=== PATIENT | male | born 1955 | race Caucasian/White ===

== ENCOUNTER 2022-05-28 22:27 | Inpatient (IN) ==
[2022-05-28] MEDS ORDERED: DUONEB NEB STA (23:11)
[2022-05-28] MEDS ORDERED: DUONEB NEB ONE (23:13)
[2022-05-28 23:31] LABS: BASOPHILS # (AUTO) 0.1 K/uL (0-0.2); BASOPHILS % (AUTO) 0.7 % (0.0-3.0); EOSINOPHILS # (AUTO) 0.1 K/ul (0.0-0.7); EOSINOPHILS % (AUTO) 0.4 % (0.0-7.0); HEMATOCRIT 39.4 % (42.0-52.0); HEMOGLOBIN 13.3 g/dl (14.0-18.0); IMMATURE GRANULOCYTE # (AUTO) 0.1 (0.0-1.0); IMMATURE GRANULOCYTE % (AUTO) 0.7 % (0.0-5.0); LYMPHOCYTES # (AUTO) 1.6 K/uL (0.60-3.4); LYMPHOCYTES % (AUTO) 12.3 (10.0-50.0); MEAN CORPUSCULAR HEMOGLOBIN 30.6 pg (27.0-31.0); MEAN CORPUSCULAR HGB CONC 33.8 (31.8-35.4); MEAN CORPUSCULAR VOLUME 90.6 fl (80.0-94.0); MONOCYTES # (AUTO) 1.3 K/uL (0.4-2.0); MONOCYTES % (AUTO) 9.9 (0-10); NEUTROPHILS # (AUTO) 10.2 K/ul (2.0-6.9); PLATELET COUNT 256 10^3/uL (140-440); RED BLOOD COUNT 4.35 10^6/ul (4.70-6.10); WHITE BLOOD COUNT 13.38 K/ul (4.2-10.2)
[2022-05-28 23:43] LABS: ALANINE AMINOTRANSFERASE 37.9 U/L (0-50); ALBUMIN 3.79 g/dL (3.5-5.0); ALKALINE PHOSPHATASE 83.6 U/L (56-119); ASPARTATE AMINO TRANSFERASE 37.7 U/L (17-59); BILIRUBIN,TOTAL 0.63 mg/dL (0.2-1.3); BLOOD UREA NITROGEN 7.2 mg/dL (9-20); CARBON DIOXIDE 23.5 mmol/L (22-30.0); CHLORIDE 104.6 mmol/L (98-107); CREATININE 0.97 mg/dL (0.60-1.10); GLUCOSE 140.5 mg/dL (74-106); POTASSIUM 3.45 mmol/L (3.5-5.1); TOTAL PROTEIN 7.14 g/dL (6.3-8.2)
[2022-05-28] MEDS ORDERED: MAXIPIME 2 GM/50 ML D5W 2 GM/50 ML BAG IV ONE (23:49)
[2022-05-28] MEDS ORDERED: VANCOMYCIN 1.5 GRAM/300 ML PREMIX 1.5 GM/300 ML BAG IV ONE (23:54)
[2022-05-28 23:55] LABS: TROPONIN I < 0.012 ng/ml (0.0000-0.120)
[2022-05-29 00:02] LABS: MOLECULAR FLU A NEGATIVE BY NAAT (NEGATIVE); MOLECULAR FLU B NEGATIVE BY NAAT (NEGATIVE)
[2022-05-29 00:05] LABS: SARS COV-2 RNA RAPID NAAT NEGATIVE (NEGATIVE)
[2022-05-29 00:09] LABS: ABG PH 7.46 (7.35-7.45); COHb 2.2 (0.5-1.5); HCO3 22.8 (21-28); MetHb 0.9 (0-1.5); TCO2 23.8 (19-24); sO2 93.3 % (94-98)
--- NOTE | 2022-05-29 00:27 | DI ---
EXAM: PA and lateral chest. HISTORY: Cough. FINDINGS: There is a left-sided MediPort catheter. There are multiple sternotomy wires. The cardiac silhouette is enlarged. The pulmonary vasculature is within normal limits. The costophrenic angles are clear. There are bilateral infiltrates, consistent with pneumonia. Impression: Bilateral pneumonia as described. Cardiomegaly.
[2022-05-29] MEDS ORDERED: TYLENOL PO PRN (00:52)
[2022-05-29] MEDS ORDERED: DEXTROSE 50%-WATER ABBOJECT IVP PRN (00:52)
[2022-05-29] MEDS ORDERED: ALBUTEROL 0.083% NEB NEB PRN ×3 (00:57→01:28)
[2022-05-29] MEDS ORDERED: TESSALON PERLES PO PRN (01:03)
--- NOTE | 2022-05-29 01:27 | ED.PDOC ---
General ED Provider: Dr. ALDAIR PINO Chief Complaint: Respiratory Complaint Stated Complaint: cough since last Mon - seen at yesterday dx CAP Rx augmentin & Zithro.Hx RT non scc receiving chemo May 19 Time Seen by Provider: 05/28/22 23:02 Mode of Arrival: Wheelchair Information Source: Patient and Family Exam Limitations: No limitations Primary Care Provider: CARMEN DANIEL MD Seen Within Last 72 Hours for Same Complaint By: ED Nursing and Triage Documentation Reviewed and Agree: Yes Does patient meet sepsis criteria?: No System Inflammatory Response Syndrome: Not Applicable Sepsis Protocol: For patient's 13 years and over: Temp is 96.8 and below OR 101 and greater Pulse >90 BPM Resp >20/minute Acutely Altered Mental Status Are patient's symptoms suggestive of a new infection, such as: -Pneumonia -Skin, Soft Tissue -Endocarditis -UTI -Bone, Joint Infection -Implantable Device -Acute Abdominal Infection -Wound Infection -Meningitis -Blood Stream Catheter Infection -Unknown Review of Systems Review Of Systems Constitutional: Reports Weakness; Denies Chills, Diaphoresis, Fever or Sweats Eyes: Reports No symptoms Ears, Nose, Mouth, Throat: Reports Nose pain and Other (nasal congestion ) Respiratory: Reports Cough Cardiac: Reports No symptoms GI: Reports No symptoms : Reports No symptoms Musculoskeletal: Reports No symptoms Neurological: Reports No symptoms Endocrine: Reports No symptoms Hematologic/Lymphatic: Reports No symptoms All Other Systems: Reviewed and Negative Physical Exam Physical Exam Appearance: Reports Ill-appearing Ill-appearing: Mild Pain Distress: None Eyes: Reports SAJI, EOMI and Conjunctiva clear ENT: Reports Ears normal, Nose normal and Oropharynx normal Neck: Supple Respiratory: Reports Airway patent, Respirations nonlabored and Rhonchi; Denies Retractions Cardiovascular: Reports RRR, Pulses normal and No murmur GI/: Reports Soft and Nontender Musculoskeletal: Reports Normal strength Skin: Reports Warm and Dry Neurological: Reports Sensation intact, Motor intact, Alert and Oriented Psychiatric: Reports Affect appropriate Interpretation Radiology Interpretation Radiology Interpretation By: Radiologist Radiology Results: Positive Exam Interpreted: CXR Xray Comments: bilat Pne EKG Interpretation Time of EKG #1: 12:19 Rate: Normal Rhythm: Sinus Ectopy: None Interpretation: NAC Critical Care Note Critical Care Note Total Critical Care Time (mins): 15 Comments: review data / UTD review/ abx selection/ notify PMD Course Course Hematology/Chemistry: 05/28/22 23:25 05/28/22 23:25 Orders, Labs, Meds: Lab Review 05/28/22 05/28/22 05/28/22 23:25 23:25 23:25 WBC 13.38 H RBC 4.35 L Hgb 13.3 L Hct 39.4 L MCV 90.6 MCH 30.6 MCHC 33.8 RDW Coeff of Marie 14.0 Plt Count 256 Immature Gran % (Auto) 0.7 Neut % (Auto) 76.0 H Lymph % (Auto) 12.3 Bacon % (Auto) 9.9 Eos % (Auto) 0.4 Baso % (Auto) 0.7 Neut # (Auto) 10.2 H Lymph # (Auto) 1.6 Bacon # (Auto) 1.3 Eos # (Auto) 0.1 Baso # (Auto) 0.1 Immature Gran # (Auto) 0.1 Puncture Site Base Excess O2 Saturation ABG pH ABG pCO2 ABG pO2 ABG HCO3 ABG Total CO2 Jaylen Test Hemoglobin Oxyhemoglobin Carboxyhemoglobin Total Hemoglobin FiO2 % Sodium 136.0 Potassium 3.45 L Chloride 104.6 Carbon Dioxide 23.5 Anion Gap 11.35 BUN 7.2 L Creatinine 0.97 Estimated GFR (MDRD) 77.00 BUN/Creatinine Ratio 7.42 Glucose 140.5 H Lactic Acid 1.75 Calcium 9.10 Total Bilirubin 0.63 AST 37.7 ALT 37.9 Alkaline Phosphatase 83.6 Troponin I < 0.012 NT-Pro-B Natriuret Pep 100.000 Total Protein 7.14 Albumin 3.79 Globulin 3.35 Albumin/Globulin Ratio 1.13 Procalcitonin Influ A Molecular Assay Influ B Molecular Assay SARS CoV-2 RNA Rapid GER 05/28/22 05/28/22 05/28/22 23:25 23:25 23:25 WBC RBC Hgb Hct MCV MCH MCHC RDW Coeff of Marie Plt Count Immature Gran % (Auto) Neut % (Auto) Lymph % (Auto) Bacon % (Auto) Eos % (Auto) Baso % (Auto) Neut # (Auto) Lymph # (Auto) Bacon # (Auto) Eos # (Auto) Baso # (Auto) Immature Gran # (Auto) Puncture Site Base Excess O2 Saturation ABG pH ABG pCO2 ABG pO2 ABG HCO3 ABG Total CO2 Jaylen Test Hemoglobin Oxyhemoglobin Carboxyhemoglobin Total Hemoglobin FiO2 % Sodium Potassium Chloride Carbon Dioxide Anion Gap BUN Creatinine Estimated GFR (MDRD) BUN/Creatinine Ratio Glucose Lactic Acid Calcium Total Bilirubin AST ALT Alkaline Phosphatase Troponin I NT-Pro-B Natriuret Pep Total Protein Albumin Globulin Albumin/Globulin Ratio Procalcitonin 0.13 H Influ A Molecular Assay Negative by naat Influ B Molecular Assay Negative by naat SARS CoV-2 RNA Rapid GER Negative 05/28/22 23:55 WBC RBC Hgb Hct MCV MCH MCHC RDW Coeff of Marie Plt Count Immature Gran % (Auto) Neut % (Auto) Lymph % (Auto) Bacon % (Auto) Eos % (Auto) Baso % (Auto) Neut # (Auto) Lymph # (Auto) Bacon # (Auto) Eos # (Auto) Baso # (Auto) Immature Gran # (Auto) Puncture Site Lb Base Excess -1.0 O2 Saturation 93.3 L ABG pH 7.46 H ABG pCO2 32.0 L ABG pO2 64.0 L ABG HCO3 22.8 ABG Total CO2 23.8 Jaylen Test + Hemoglobin 0.9 Oxyhemoglobin 91.0 L Carboxyhemoglobin 2.2 H Total Hemoglobin 17.0 FiO2 % 21.0 Sodium Potassium Chloride Carbon Dioxide Anion Gap BUN Creatinine Estimated GFR (MDRD) BUN/Creatinine Ratio Glucose Lactic Acid Calcium Total Bilirubin AST ALT Alkaline Phosphatase Troponin I NT-Pro-B Natriuret Pep Total Protein Albumin Globulin Albumin/Globulin Ratio Procalcitonin Influ A Molecular Assay Influ B Molecular Assay SARS CoV-2 RNA Rapid GER Orders Category Date Time Status ADMIT PATIENT INPATIENT .TO [facility] (MONITORED BED) ADMISSION 05/29/22 00:46 Active ABG DRAW REQUEST Stat CARDIO 05/28/22 23:49 Completed EKG-(ED ONLY) Stat CARDIO 05/28/22 23:11 Completed EKG-(ED ONLY) Stat CARDIO 05/29/22 00:46 Ordered EKG-(IP & OP ONLY) DAILY CARDIO 05/30/22 06:00 Ordered EKG-(IP & OP ONLY) DAILY CARDIO 05/31/22 06:00 Ordered NEBULIZER TREATMENT Routine CARDIO 05/29/22 00:57 Ordered NEBULIZER TREATMENT Routine CARDIO 05/29/22 01:05 Ordered NEBULIZER TREATMENT Stat CARDIO 05/28/22 23:11 Completed OXYGEN Routine CARDIO 05/29/22 00:56 Ordered ACTIVITY .BR with BRP CARE 05/29/22 00:52 Active BLOOD GLUCOSE MONITORING (MED/SURG) 0630,1100,1700,2100 CARE 05/29/22 00:56 Active CASE MANAGEMENT CONSULT ONCE CARE 05/29/22 00:55 Active INTAKE & OUTPUT Q8HR CARE 05/29/22 00:47 Active IP: INSERT SALINE LOCK ONCE CARE 05/29/22 00:47 Active TELEMETRY MONITORING TELE CARE 05/29/22 00:47 Active VITAL SIGNS Q4HR CARE 05/29/22 00:55 Active VITAL SIGNS Q8HR CARE 05/29/22 00:47 Active ADA 1800 JAZMINE. DIET DIETARY 05/29/22 Breakfast Ordered ED IV/MEDIPORT/POWERPORT .ONCE EMERGENCY 05/28/22 23:11 Active ABG COOX Stat LAB 05/28/22 23:55 Completed BLOOD CULTURE (ED ONLY) Stat LAB 05/28/22 23:25 Received CBC W/ AUTO DIFF DAILY@0600 LAB 05/29/22 06:00 Ordered CBC W/ AUTO DIFF DAILY@0600 LAB 05/30/22 06:00 Ordered CBC W/ AUTO DIFF Stat LAB 05/28/22 23:25 Completed CMP [COMPREHENSIVE METABOLIC PANEL] Stat LAB 05/28/22 23:25 Completed COMPREHENSIVE METABOLIC PANEL DAILY@0600 LAB 05/29/22 06:00 Ordered COMPREHENSIVE METABOLIC PANEL DAILY@0600 LAB 05/30/22 06:00 Ordered COVID [SARS COV-2 RNA RAPID GER] Stat LAB 05/28/22 23:25 Completed FLU A & B MOLECULAR [FLU A/B MOLECULAR] Stat LAB 05/28/22 23:25 Completed LACTIC ACID Stat LAB 05/28/22 23:25 Completed NT-PROBNP Stat LAB 05/28/22 23:25 Completed PROCALCITONIN Stat LAB 05/28/22 23:25 Completed TROPONIN I Q8H LAB 05/29/22 07:00 Ordered TROPONIN I Q8H LAB 05/29/22 15:00 Ordered TROPONIN I Stat LAB 05/28/22 23:25 Completed 0.9 % Sodium Chloride [Saline Flush] MEDS 05/28/22 23:11 Active 1 syr IVF PRN PRN Acetaminophen [Tylenol] MEDS 05/29/22 00:52 Active 650 mg PO Q4H PRN Albuterol Sulfate 0.083% Neb [Albuterol 0.083% Neb] MEDS 05/29/22 00:57 Discontinued 2.5 mg NEB RTQID PRN Aspirin [Aspirin Chewable] MEDS 05/29/22 09:00 Active 81 mg PO DAILY Atorvastatin Calcium [Lipitor] MEDS 05/29/22 09:00 Active 80 mg PO DAILY Benzonatate [Tessalon Perles] MEDS 05/29/22 01:03 Active 200 mg PO Q8-12H PRN Cefepime 2 gm/D5w [Maxipime 2 gm/50 ml D5w] MEDS 05/28/22 23:49 Discontinued 2 gm in 50 ml IV ONCE Dextrose 50 % in Water [Dextrose 50%-Water Abboject] MEDS 05/29/22 00:52 Active 50 ml IVP ONCE PRN Enoxaparin Sodium [Lovenox] MEDS 05/29/22 09:00 Active 40 mg SUBCUT DAILY Ipratropium/Albuterol Neb [Duoneb] MEDS 05/28/22 23:13 Discontinued 3 ml NEB .STK-MED ONE Ipratropium/Albuterol Neb [Duoneb] MEDS 05/28/22 23:11 Discontinued 3 ml NEB ONCE STA Ipratropium/Albuterol Neb [Duoneb] MEDS 05/29/22 06:00 Active 3 ml NEB RTQ6H Levothyroxine Sodium [Synthroid] MEDS 05/29/22 06:30 Active 50 mcg PO 0630 Metformin HCl [Glucophage] MEDS 05/29/22 08:30 Active 500 mg PO DAILYWM Metoprolol Tartrate [Lopressor] MEDS 05/29/22 09:00 Active 25 mg PO BID Omeprazole [Prilosec] MEDS 05/29/22 09:00 Active 20 mg PO DAILY Potassium Chloride [Micro-K Cap] MEDS 05/29/22 09:00 Active 20 meq PO BID Vancomycin/Water For Inj (Peg) [Vancomycin 1.5 Gram/300 MEDS 05/28/22 23:54 Discontinued ml Premix] 1.5 gm in 300 ml IV ONCE fenofibrate micronized MEDS 05/29/22 09:00 Pending 200 mg PO DAILY RESUSCITATION STATUS Routine OTHERS 05/29/22 00:46 Ordered CHEST, 2 VIEWS PA & LAT Stat RADS 05/28/22 23:11 Completed Medications Generic Name Dose Route Start Last Admin Trade Name Freq PRN Reason Stop Dose Admin Acetaminophen 650 mg 05/29/22 00:52 Acetaminophen 325 Mg Tablet PO Q4H PRN Mild Pain Albuterol Sulfate 2.5 mg 05/29/22 01:28 Albuterol Sulfate 0.083% Vial.Vy NEB RTQ2H PRN dyspnea Albuterol/Ipratropium 3 ml 05/29/22 06:00 Ipratropium/Albuterol Vial.Neb NEB RTQ6H ESTELLA Aspirin 81 mg 05/29/22 09:00 Aspirin 81 Mg Tab.Chew PO DAILY [facility] Atorvastatin Calcium 80 mg 05/29/22 09:00 Atorvastatin Calcium 20 Mg Tablet PO DAILY [facility] Benzonatate 200 mg 05/29/22 01:03 Benzonatate 100 Mg Capsule PO Q8-12H PRN Cough Dextrose 50 ml 05/29/22 00:52 Dextrose 50 % In Water 50 Ml Disp.Syrin IVP ONCE PRN Unconscious Hypoglycemia Protocol Enoxaparin Sodium 40 mg 05/29/22 09:00 Enoxaparin Sodium 40 Mg/0.4 Ml Syr SUBCUT DAILY [facility] Levothyroxine Sodium 50 mcg 05/29/22 06:30 Levothyroxine Sodium 50 Mcg Tablet PO 0630 [facility] Metformin HCl 500 mg 05/29/22 08:30 Metformin Hcl 500 Mg Tablet PO DAILYWM [facility] Metoprolol Tartrate 25 mg 05/29/22 09:00 Metoprolol Tartrate 50 Mg Tablet PO BID [facility] Non-Formulary Medication 200 mg 05/29/22 09:00 Fenofibrate Micronized PO DAILY [facility] Omeprazole 20 mg 05/29/22 09:00 Omeprazole 20 Mg Capsule.Dr PO DAILY [facility] Potassium Chloride 20 meq 05/29/22 09:00 Potassium Chloride 10 Meq Capsule.Er PO BID [facility] Sodium Chloride 1 syr 05/28/22 23:11 0.9% Sodium Chloride 10 Ml Disp.Syrin IVF PRN PRN To flush IV Discontinued Medications Generic Name Dose Route Start Last Admin Trade Name Freq PRN Reason Stop Dose Admin Albuterol Sulfate 2.5 mg 05/29/22 00:57 Albuterol Sulfate 0.083% Vial.Neb NEB RTQID PRN dyspnea Albuterol/Ipratropium 3 ml 05/28/22 23:11 05/28/22 23:50 Ipratropium/Albuterol Vial.Neb NEB 05/28/22 23:12 Not Given ONCE STA CEFEPIME 2 GM/D5W 2 gm in 50 mls @ 100 mls/hr 05/28/22 23:49 05/29/22 00:23 Maxipime 2 Gm/50 Ml D5w IV 05/29/22 00:18 100 mls/hr ONCE ONE Administration VANCOMYCIN/WATER FOR INJ (PEG) 1.5 gm in 300 mls @ 200 mls/hr 05/28/22 23:54 Vancomycin 1.5 Gram/300 Ml Premix IV 05/29/22 01:23 ONCE ONE Vital Signs: Temp Pulse Resp BP Pulse Ox 05/28/22 22:28 97.4 F L 94 26 H 129/76 93 L MDM history Physical chart review Discussed plan with pt - agrees review ekg , imaging , labs discuss with RT discuss results of testing - agrees discussed treatment plan - agrees Dr Daniel - admit to Hospitalist Pt reports feeling better Discharge Plan Discharge Did you review [place] CREDIT PORTFOLIO MANAGER for ALL controlled substances?: Not Applicable Discussed opioids are addictive and Narcan is available by prescription or from pharmacy.: No ED Provider: ALADIR PINO Physician Progress Note: []
[2022-05-29] MEDS ORDERED: OXYCODONE PO PRN (01:43)
[2022-05-29 01:49] VITALS: BMI 27.6
[2022-05-29] MEDS: DUONEB NEB SCH ×4 (04:40→23:00)
[2022-05-29] MEDS: SYNTHROID PO SCH (06:03)
[2022-05-29 06:59] LABS: BASOPHILS # (AUTO) 0.1 K/uL (0-0.2); BASOPHILS % (AUTO) 0.8 % (0.0-3.0); EOSINOPHILS # (AUTO) 0.1 K/ul (0.0-0.7); EOSINOPHILS % (AUTO) 0.7 % (0.0-7.0); HEMATOCRIT 37.6 % (42.0-52.0); HEMOGLOBIN 12.5 g/dl (14.0-18.0); IMMATURE GRANULOCYTE # (AUTO) 0.1 (0.0-1.0); IMMATURE GRANULOCYTE % (AUTO) 0.7 % (0.0-5.0); LYMPHOCYTES # (AUTO) 1.7 K/uL (0.60-3.4); LYMPHOCYTES % (AUTO) 13.5 (10.0-50.0); MEAN CORPUSCULAR HEMOGLOBIN 30.4 pg (27.0-31.0); MEAN CORPUSCULAR HGB CONC 33.2 (31.8-35.4); MEAN CORPUSCULAR VOLUME 91.5 fl (80.0-94.0); MONOCYTES # (AUTO) 1.2 K/uL (0.4-2.0); NEUTROPHILS # (AUTO) 9.1 K/ul (2.0-6.9); NEUTROPHILS % (AUTO) 74.3 % (42.2-75.2); PLATELET COUNT 244 10^3/uL (140-440); RDW COEFFICIENT OF VARIATION 14.1 % (11.6-14.8); RED BLOOD COUNT 4.11 10^6/ul (4.70-6.10); WHITE BLOOD COUNT 12.27 K/ul (4.2-10.2)
[2022-05-29 07:12] LABS: ALANINE AMINOTRANSFERASE 33.3 U/L (0-50); ALBUMIN 3.63 g/dL (3.5-5.0); ALKALINE PHOSPHATASE 83.9 U/L (56-119); ASPARTATE AMINO TRANSFERASE 31.9 U/L (17-59); BILIRUBIN,TOTAL 0.68 mg/dL (0.2-1.3); CALCIUM 8.89 mg/dL (8.4-10.2); CARBON DIOXIDE 23.1 mmol/L (22-30.0); CHLORIDE 104.9 mmol/L (98-107); CREATININE 0.98 mg/dL (0.60-1.10); GLUCOSE 118.4 mg/dL (74-106); SODIUM 134.5 mmol/L (134.5-145); TOTAL PROTEIN 6.83 g/dL (6.3-8.2)
[2022-05-29 07:26] LABS: POTASSIUM 3.29 mmol/L (3.5-5.1); TROPONIN I < 0.012 ng/ml (0.0000-0.120)
[2022-05-29] MEDS ORDERED: MICRO-K CAP PO SCH (08:30)
[2022-05-29] MEDS ORDERED: LOPRESSOR PO SCH (09:00)
[2022-05-29] MEDS ORDERED: NON-FORMULARY MEDICATION (Fenofibrate Micronized 200 mg Capsule) PO SCH (09:00)
[2022-05-29] MEDS: PRILOSEC PO SCH (09:20)
[2022-05-29] MEDS: TRIGLIDE PO SCH (09:20)
[2022-05-29] MEDS: LIPITOR PO SCH (09:20)
[2022-05-29] MEDS: ASPIRIN CHEWABLE PO SCH (09:20)
[2022-05-29] MEDS: K-DUR PO SCH ×2 (09:20→17:30)
[2022-05-29] MEDS: LOPRESSOR PO SCH ×2 (09:20→20:59)
[2022-05-29] MEDS: MAXIPIME 2 GM/50 ML D5W 2 GM/50 ML BAG IV SCH ×3 (09:21→20:03)
[2022-05-29] MEDS: GLUCOPHAGE PO SCH (09:21)
[2022-05-29] MEDS: LOVENOX SUBCUT SCH (09:21)
[2022-05-29] MEDS: VANCOMYCIN 1.25 GM/250 ML BAG 1.25 GM/250 ML BAG IV SCH ×2 (10:25→21:00)
--- NOTE | 2022-05-29 10:26 | PCM.PROG ---
Date Seen by Provider: 05/29/22 Time Seen by Provider: 10:23 Subjective: dx. pneumonia increasing cough Objective: Vitals: T=97.2 F, P=73, R=18, HG=609/76, SPO2=94 HEENT: []conjunctiva clear Neck: []supple Lungs: [] wheezes CVS: []rrr Abdomen: []nondistended Extremities: []bebe Neurological: []alert Skin: []warm and dry Lab/Tests/Diagnostic Imaging: [] Plan: mucinex, continue nebs, steroids, cefepime, vanc, pharm dosing
[2022-05-29] MEDS: MUCINEX PO SCH ×2 (11:58→20:59)
[2022-05-29] MEDS: TESSALON PERLES PO PRN ×2 (13:49→21:25)
[2022-05-30] MEDS: MAXIPIME 2 GM/50 ML D5W 2 GM/50 ML BAG IV SCH ×3 (04:27→20:18)
[2022-05-30] MEDS: DUONEB NEB SCH ×4 (04:35→23:50)
[2022-05-30 05:30] LABS: BASOPHILS # (AUTO) 0.1 K/uL (0-0.2); BASOPHILS % (AUTO) 0.8 % (0.0-3.0); EOSINOPHILS # (AUTO) 0.1 K/ul (0.0-0.7); HEMATOCRIT 35.8 % (42.0-52.0); HEMOGLOBIN 12.1 g/dl (14.0-18.0); IMMATURE GRANULOCYTE # (AUTO) 0.1 (0.0-1.0); IMMATURE GRANULOCYTE % (AUTO) 0.5 % (0.0-5.0); LYMPHOCYTES # (AUTO) 1.8 K/uL (0.60-3.4); LYMPHOCYTES % (AUTO) 16.6 (10.0-50.0); MEAN CORPUSCULAR HEMOGLOBIN 31.1 pg (27.0-31.0); MEAN CORPUSCULAR HGB CONC 33.8 (31.8-35.4); MONOCYTES # (AUTO) 1.2 K/uL (0.4-2.0); MONOCYTES % (AUTO) 10.7 (0-10); NEUTROPHILS # (AUTO) 7.7 K/ul (2.0-6.9); NEUTROPHILS % (AUTO) 70.4 % (42.2-75.2); PLATELET COUNT 238 10^3/uL (140-440); RDW COEFFICIENT OF VARIATION 14.4 % (11.6-14.8); RED BLOOD COUNT 3.89 10^6/ul (4.70-6.10); WHITE BLOOD COUNT 10.98 K/ul (4.2-10.2)
[2022-05-30] MEDS: PRILOSEC PO SCH (05:38)
[2022-05-30] MEDS: SYNTHROID PO SCH (05:38)
[2022-05-30] MEDS: TESSALON PERLES PO PRN (05:38)
[2022-05-30 05:42] LABS: ALANINE AMINOTRANSFERASE 29.4 U/L (0-50); ALBUMIN 3.46 g/dL (3.5-5.0); ALKALINE PHOSPHATASE 75.4 U/L (56-119); ASPARTATE AMINO TRANSFERASE 30.5 U/L (17-59); BILIRUBIN,TOTAL 0.79 mg/dL (0.2-1.3); BLOOD UREA NITROGEN 4.4 mg/dL (9-20); CALCIUM 8.54 mg/dL (8.4-10.2); CARBON DIOXIDE 22.9 mmol/L (22-30.0); CHLORIDE 106.7 mmol/L (98-107); CREATININE 0.94 mg/dL (0.60-1.10); GLUCOSE 150.5 mg/dL (74-106); POTASSIUM 3.41 mmol/L (3.5-5.1); SODIUM 132.8 mmol/L (134.5-145); TOTAL PROTEIN 6.59 g/dL (6.3-8.2)
[2022-05-30] MEDS: K-DUR PO SCH ×2 (08:39→17:39)
[2022-05-30] MEDS: LOVENOX SUBCUT SCH (08:39)
[2022-05-30] MEDS: GLUCOPHAGE PO SCH (08:39)
[2022-05-30] MEDS: LIPITOR PO SCH (08:39)
[2022-05-30] MEDS: MUCINEX PO SCH ×2 (08:39→20:18)
[2022-05-30] MEDS: ASPIRIN CHEWABLE PO SCH (08:39)
[2022-05-30] MEDS: LOPRESSOR PO SCH ×2 (08:39→20:19)
[2022-05-30] MEDS: TRIGLIDE PO SCH (08:39)
[2022-05-30] MEDS: VANCOMYCIN 1.25 GM/250 ML BAG 1.25 GM/250 ML BAG IV SCH ×2 (08:40→21:08)
--- NOTE | 2022-05-30 10:15 | PCM.PROG ---
Date Seen by Provider: 05/30/22 Time Seen by Provider: 09:25 Subjective: Patient reports feeling poorly. Cough improved a bit. Objective: Vitals: T=97.3 F, P=89, R=18, QZ=025/68, SPO2=91 Patient in NAD. Coughing intermittently during exam. HEENT: [] Neck: [] Supple. Lungs: [] Coarse BS throughout. Air exchange fair. CVS: [] RRR Abdomen: [] Extremities: [] Neurological: [] Skin: [] Lab/Tests/Diagnostic Imaging: [] (1) Pneumonia: Status: Acute Code(s): J18.9 - Pneumonia, unspecified organism SNOMED Code(s): 099872060 (2) COPD (chronic obstructive pulmonary disease): Status: Acute Code(s): J44.9 - Chronic obstructive pulmonary disease, unspecified SNOMED Code(s): 36253789 (3) Lung cancer: Status: Acute Code(s): C34.90 - Malignant neoplasm of unspecified part of unspecified bronchus or lung SNOMED Code(s): 738390342 (4) Hypokalemia: Status: Acute Code(s): E87.6 - Hypokalemia SNOMED Code(s): 05655494 Plan: Continue IV antibiotics, nebs. Add solumedrol. Replace potassium deficit. Evaluate patient for home oxygen.
[2022-05-30] MEDS ORDERED: K-DUR PO ONE (10:17)
[2022-05-30] MEDS: SOLU-MEDROL 125 MG IVP SCH ×3 (10:27→20:50)
[2022-05-31] MEDS: MAXIPIME 2 GM/50 ML D5W 2 GM/50 ML BAG IV SCH ×3 (04:53→20:03)
[2022-05-31] MEDS: DUONEB NEB SCH ×4 (05:00→23:20)
[2022-05-31] MEDS: SOLU-MEDROL 125 MG IVP SCH ×3 (05:06→20:00)
[2022-05-31] MEDS: SYNTHROID PO SCH (05:50)
[2022-05-31] MEDS: PRILOSEC PO SCH (05:50)
[2022-05-31] MEDS: LIPITOR PO SCH (08:32)
[2022-05-31] MEDS: MUCINEX PO SCH ×2 (08:32→20:03)
[2022-05-31] MEDS: ASPIRIN CHEWABLE PO SCH (08:32)
[2022-05-31] MEDS: TRIGLIDE PO SCH (08:32)
[2022-05-31] MEDS: GLUCOPHAGE PO SCH (08:32)
[2022-05-31] MEDS: K-DUR PO SCH ×2 (08:32→17:33)
[2022-05-31] MEDS: LOPRESSOR PO SCH ×2 (08:32→20:03)
[2022-05-31] MEDS: LOVENOX SUBCUT SCH (08:33)
[2022-05-31 08:56] LABS: BASOPHILS % (AUTO) 0.1 % (0.0-3.0); EOSINOPHILS % (AUTO) 0.1 % (0.0-7.0); HEMATOCRIT 37.6 % (42.0-52.0); HEMOGLOBIN 12.5 g/dl (14.0-18.0); IMMATURE GRANULOCYTE # (AUTO) 0.1 (0.0-1.0); IMMATURE GRANULOCYTE % (AUTO) 0.8 % (0.0-5.0); LYMPHOCYTES # (AUTO) 0.8 K/uL (0.60-3.4); LYMPHOCYTES % (AUTO) 4.8 (10.0-50.0); MEAN CORPUSCULAR HEMOGLOBIN 30.6 pg (27.0-31.0); MEAN CORPUSCULAR HGB CONC 33.2 (31.8-35.4); MEAN CORPUSCULAR VOLUME 92.2 fl (80.0-94.0); MONOCYTES # (AUTO) 0.5 K/uL (0.4-2.0); MONOCYTES % (AUTO) 3.4 (0-10); NEUTROPHILS # (AUTO) 14.2 K/ul (2.0-6.9); NEUTROPHILS % (AUTO) 90.8 % (42.2-75.2); PLATELET COUNT 306 10^3/uL (140-440); RDW COEFFICIENT OF VARIATION 14.4 % (11.6-14.8); RED BLOOD COUNT 4.08 10^6/ul (4.70-6.10); WHITE BLOOD COUNT 15.66 K/ul (4.2-10.2)
[2022-05-31 09:06] LABS: ALBUMIN 3.91 g/dL (3.5-5.0); ALKALINE PHOSPHATASE 76.9 U/L (56-119); ASPARTATE AMINO TRANSFERASE 39.4 U/L (17-59); BILIRUBIN,TOTAL 0.62 mg/dL (0.2-1.3); BLOOD UREA NITROGEN 10.4 mg/dL (9-20); CALCIUM 9.86 mg/dL (8.4-10.2); CARBON DIOXIDE 22.5 mmol/L (22-30.0); CHLORIDE 104.1 mmol/L (98-107); CREATININE 0.92 mg/dL (0.60-1.10); GLUCOSE 169.2 mg/dL (74-106); POTASSIUM 4.44 mmol/L (3.5-5.1); SODIUM 134.3 mmol/L (134.5-145); TOTAL PROTEIN 7.29 g/dL (6.3-8.2)
[2022-05-31] MEDS: VANCOMYCIN 1.5 GRAM/300 ML PREMIX 1.5 GM/300 ML BAG IV SCH ×2 (09:42→20:56)
[2022-05-31] MEDS: VANCOMYCIN 1.25 GM/250 ML BAG 1.25 GM/250 ML BAG IV SCH (10:28)
[2022-05-31] MEDS: TESSALON PERLES PO PRN (20:00)
--- NOTE | 2022-05-31 22:27 | PCM.PROG ---
Date Seen by Provider: 05/31/22 Time Seen by Provider: 12:16 Subjective: Still mildly SOB. no acute chest pain Objective: Vitals: T=97.4 F, P=84, R=20, FK=934/50, SPO2=93 HEENT: []wnl Neck: []supple Lungs: []mild posterior crackles. no acute wheezing or rhonchi CVS: []RRR Abdomen: []benign Extremities: []no acute abnormality. Neurological: []non-focal Skin: []no acuute abnormality. Lab/Tests/Diagnostic Imaging: []leucocytosis increased. (1) Pneumonia: Status: Acute Code(s): J18.9 - Pneumonia, unspecified organism SNOMED Code(s): 227381836 (2) COPD (chronic obstructive pulmonary disease): Status: Acute Code(s): J44.9 - Chronic obstructive pulmonary disease, unspecified SNOMED Code(s): 13105149 (3) Lung cancer: Status: Acute Code(s): C34.90 - Malignant neoplasm of unspecified part of unspecified bronchus or lung SNOMED Code(s): 891994416 (4) Hypokalemia: Status: Acute Code(s): E87.6 - Hypokalemia SNOMED Code(s): 16063118 Plan: 1. Continue treatment regimen. 2. D/w Dr Wiley----for Echocardiogram.
[2022-05-31] MEDS: MUCOMYST 20% NEB NEB SCH (23:20)
[2022-06-01] MEDS: MAXIPIME 2 GM/50 ML D5W 2 GM/50 ML BAG IV SCH ×2 (04:18→13:15)
[2022-06-01] MEDS: MUCOMYST 20% NEB NEB SCH (04:55)
[2022-06-01] MEDS: DUONEB NEB SCH ×2 (04:55→11:28)
[2022-06-01 05:07] VITALS: BP 106/58; TEMP 97.5
[2022-06-01 05:14] LABS: BASOPHILS % (AUTO) 0.2 % (0.0-3.0); EOSINOPHILS % (AUTO) 0.1 % (0.0-7.0); HEMATOCRIT 34.9 % (42.0-52.0); HEMOGLOBIN 11.5 g/dl (14.0-18.0); IMMATURE GRANULOCYTE # (AUTO) 0.1 (0.0-1.0); IMMATURE GRANULOCYTE % (AUTO) 0.9 % (0.0-5.0); LYMPHOCYTES # (AUTO) 0.8 K/uL (0.60-3.4); LYMPHOCYTES % (AUTO) 5.6 (10.0-50.0); MEAN CORPUSCULAR VOLUME 94.1 fl (80.0-94.0); MONOCYTES # (AUTO) 0.7 K/uL (0.4-2.0); MONOCYTES % (AUTO) 4.7 (0-10); NEUTROPHILS # (AUTO) 13.2 K/ul (2.0-6.9); NEUTROPHILS % (AUTO) 88.5 % (42.2-75.2); PLATELET COUNT 258 10^3/uL (140-440); RDW COEFFICIENT OF VARIATION 14.9 % (11.6-14.8); RED BLOOD COUNT 3.71 10^6/ul (4.70-6.10); WHITE BLOOD COUNT 14.95 K/ul (4.2-10.2)
[2022-06-01 05:29] LABS: ALANINE AMINOTRANSFERASE 35.5 U/L (0-50); ALBUMIN 3.56 g/dL (3.5-5.0); ALKALINE PHOSPHATASE 60.6 U/L (56-119); ASPARTATE AMINO TRANSFERASE 49.8 U/L (17-59); BILIRUBIN,TOTAL 0.53 mg/dL (0.2-1.3); BLOOD UREA NITROGEN 15.1 mg/dL (9-20); CALCIUM 9.28 mg/dL (8.4-10.2); CHLORIDE 102.4 mmol/L (98-107); CREATININE 0.94 mg/dL (0.60-1.10); GLUCOSE 163.7 mg/dL (74-106); POTASSIUM 4.64 mmol/L (3.5-5.1); SODIUM 133.4 mmol/L (134.5-145); TOTAL PROTEIN 6.53 g/dL (6.3-8.2)
[2022-06-01] MEDS: SYNTHROID PO SCH (05:35)
[2022-06-01] MEDS: PRILOSEC PO SCH (05:35)
[2022-06-01] MEDS: SOLU-MEDROL 125 MG IVP SCH ×2 (05:38→12:25)
[2022-06-01] MEDS ORDERED: MUCOMYST 20% NEB NEB SCH (06:00)
[2022-06-01] MEDS: VANCOMYCIN 1.5 GRAM/300 ML PREMIX 1.5 GM/300 ML BAG IV SCH (08:29)
[2022-06-01] MEDS: MUCINEX PO SCH (08:30)
[2022-06-01] MEDS: ASPIRIN CHEWABLE PO SCH (08:30)
[2022-06-01] MEDS: GLUCOPHAGE PO SCH (08:30)
[2022-06-01] MEDS: LIPITOR PO SCH (08:30)
[2022-06-01] MEDS: LOPRESSOR PO SCH (08:30)
[2022-06-01] MEDS: LOVENOX SUBCUT SCH (08:30)
[2022-06-01] MEDS: K-DUR PO SCH (08:31)
[2022-06-01] MEDS: TRIGLIDE PO SCH (08:31)
--- NOTE | 2022-06-01 09:12 | PCM.PROG ---
Date Seen by Provider: 06/01/22 Time Seen by Provider: 08:50 Subjective: Patient has no complaints. Objective: Vitals: T=97.5 F, P=74, R=20, EN=781/58, SPO2=93 Patient breathing much easier today and looks stronger. HEENT: [] Neck: [] Lungs: [] BS coarse. Scattered rhonchi. CVS: [] RRR. No peripheral edema. Abdomen: [] Extremities: [] Neurological: [] Skin: [] Lab/Tests/Diagnostic Imaging: [] (1) Pneumonia: Status: Acute Code(s): J18.9 - Pneumonia, unspecified organism SNOMED Code(s): 965826022 Assessment: Improving (2) COPD (chronic obstructive pulmonary disease): Status: Acute Code(s): J44.9 - Chronic obstructive pulmonary disease, unspecified SNOMED Code(s): 59610362 Assessment: Improving (3) Lung cancer: Status: Acute Code(s): C34.90 - Malignant neoplasm of unspecified part of unspecified bronchus or lung SNOMED Code(s): 349802083 (4) Hypokalemia: Status: Acute Code(s): E87.6 - Hypokalemia SNOMED Code(s): 09710258 Assessment: Resolved. Plan: Patient to have echocardiogram today. Repeat CXR. Possibly home later today. Home oxygen arranged.
--- NOTE | 2022-06-01 13:34 | DI ---
EXAM: CHEST RADIOGRAPH (2 VIEW) TECHNIQUE: AP and Lateral Chest Radiographs. HISTORY: Shortness of breath COMPARISON: 05/28/2022 FINDINGS: Lines, Tubes, Devices: Left chest [id number]-Izmr catheter. Lungs and Pleura: Right lung opacity, stable. Linear densities in the left mid and lower lung, stab le. Cardiomediastinum: Stable cardiomediastinal silhouette. Moderate aortic calcifications. Coronary st ents. Bones/Soft Tissues: No acute osseous abnormality. No soft tissue abnormality. Upper Abdomen: Within normal limits. IMPRESSION: Right lung opacity is grossly stable. Recommend follow-up CT chest for further characterization.
--- NOTE | 2022-06-01 13:58 | PCM.DC ---
Final Diagnosis: (1) Pneumonia: Status: Acute Code(s): J18.9 - Pneumonia, unspecified organism SNOMED Code(s): 516627121 (2) COPD (chronic obstructive pulmonary disease): Status: Acute Code(s): J44.9 - Chronic obstructive pulmonary disease, unspecified SNOMED Code(s): 11987678 (3) Lung cancer: Status: Acute Code(s): C34.90 - Malignant neoplasm of unspecified part of unspecified bronchus or lung SNOMED Code(s): 283359341 (4) Hypokalemia: Status: Acute Code(s): E87.6 - Hypokalemia SNOMED Code(s): 36121354
--- NOTE | 2022-06-01 14:03 | PCM.DC ---
Final Diagnosis: pneumonia COPD hypoxemia lung cancer Physical Exam Appearance: No pain distress, Well-nourished and Other (No respiratory distress.) Ill-appearing: Mild Pain Distress: None Eyes: Not Examined ENT: Nose normal and Oropharynx normal Neck: Supple Respiratory: Airway patent, Breath sounds equal, Breath sounds diminished and Other (coarse BS, scattered rhonchi) Cardiovascular: RRR, No rub and No murmur GI/: Soft, Nontender, No masses and Bowel sounds normal Musculoskeletal: Normal strength and No edema Skin: Warm, Dry and Normal color Neurological: Motor intact, Alert and Oriented Psychiatric: Affect appropriate and Mood appropriate (1) Pneumonia: Status: Acute Code(s): J18.9 - Pneumonia, unspecified organism SNOMED Code(s): 284749962 (2) COPD (chronic obstructive pulmonary disease): Status: Acute Code(s): J44.9 - Chronic obstructive pulmonary disease, unspecified SNOMED Code(s): 86137225 (3) Lung cancer: Status: Acute Code(s): C34.90 - Malignant neoplasm of unspecified part of unspecified bronchus or lung SNOMED Code(s): 606872401 (4) Hypokalemia: Status: Acute Code(s): E87.6 - Hypokalemia SNOMED Code(s): 59685820 Reason for Hospitalization: pneumonia, hypoxemia, COPD Prognosis/Condition at Discharge: Condition at discharge was fair Education Provided to Patient and Family: pneumonia, COPD, home oxygen Follow-ups: follow up with Dr Wiley within one week Discharge Disposition: Home Hospital Course: Patient received IV antibiotics, IV steroids, neb treatments and supplemental oxygen during hospitalization. Arrangements were made for home oxygen. Patient discharged on antibiotics. Plan: discharge patient to home, follow up with Dr Wiley within one week
--- NOTE | 2022-06-03 08:41 | ECHO2D ---
Date of Exam: 06/01/2022 Ordering Physician: DR. CARMEN DANIEL/ HOSPITALIST Room #: 109 Reason for Echo: SOB, CABG, PNEUMONITIS M-Mode Normal Adult Results LV Dimensions Normal Adult Results AoV Opening excursions >1.6 >1.6 LVEDD-base- 3.5-5.8 4.0 Ao root dimensions 2.0-3.7 3.7 LVESD-base- 3.1-4.6 L. Atrium dimensions 1.9-3.8 4.6 Post. Wall thickness 0.8-1.1 1.0 IV septum (thickness) 0.7-1.2 1.1 Post. Wall excursion 0.72-1.3 NORMAL Septal motion 0.1 Systolic motion R. Ventricular cavity 1.5-2.0 NORMAL LVEF 60% 52% Paradoxical septal wall motion NORMAL 2-D : ENLARGED LEFT ATRIAL CAVITY--AKINETIC SEPTAL WALL, VALVES NORMAL, LEFT VENTRICLE SIZE NORMAL, NO EFFUSION, NO THROMBUS M-MODE: MV: NORMAL AV: NORMAL TV: NORMAL PV: CHAMBER SIZE: ENLARGED LEFT ATRIAL CAVITY WALL MOTION: AKINETIC / HYPOKINETIC SEPTAL WALL PERICARDIUM: NORMAL INTERPRETATION: 1. AKINETIC / HYPOKINETIC SEPTAL WALL EJECTION FRACTION 52% 2. ENLARGED LEFT ATRIAL CAVITY 3. NORMAL LEFT VENTRICLE SIZE 4. NORMAL VALVES MTDD
== END 2022-06-01 14:42 | disposition home or self-care (01) | DRG 194 ==
LOC: ED 22:27 → MEDSURG A 05-29 01:09
PROVIDERS: ADMIT Emergency Medicine; ATTEND Surgery
DX: J18.9 Pneumonia, unspecified organism; J44.9 Chronic obstructive pulmonary disease, unspecified; Z79.899 Other long term (current) drug therapy; Z99.81 Dependence on supplemental oxygen; R09.02 Hypoxemia; R06.2 Wheezing; Z20.822 Contact with and (suspected) exposure to COVID-19; Z51.81 Encounter for therapeutic drug level monitoring; Z79.82 Long term (current) use of aspirin; E87.6 Hypokalemia; C34.90 Malignant neoplasm of unspecified part of unspecified bronchus or lung